=== PATIENT | male | born 1990 | race Caucasian/White ===

== ENCOUNTER 2018-12-12 21:32 | Inpatient (IN) | payer OTHER ==
[2018-12-12] MEDS ORDERED: ACETAMINOPHEN TAB 500 MG TAB PO STA (22:06)
[2018-12-12] MEDS ORDERED: MORPHINE SULFATE 4 MG/ML SYRINGE IVP STA (22:08)
[2018-12-12] MEDS: SODIUM CHLORIDE 0.9% 1,000 ML IV SCH (22:34)
[2018-12-12] MEDS: SODIUM CHLORIDE 0.9% 500 ML 500 ML IV SCH ×2 (22:34→22:35)
[2018-12-12 22:41] LABS: Basophils # (A) 0.2 k/uL (0-0.2); Basophils % (A) 1 %; Eosinophils # (A) 0.5 k/uL (0-0.7); Eosinophils % (A) 3 %; HCT 42.5 % (39.0-53.0); HGB 14.7 gm/dL (13.0-17.5); Lymphocytes # (A) 1.6 k/uL (1.0-4.8); Lymphocytes % (A) 8 %; MCH 29.9 pg (25.0-35.0); MCHC 34.6 g/dL (31.0-37.0); MCV 86.5 fL (80.0-100.0); Monocytes % (A) 5 %; Neutrophils # (A) 15.6 k/uL (1.3-7.7); Neutrophils % (A) 82 %; Platelet Count 217 k/uL (150-450); Poikilocytosis Slight; RBC 4.91 m/uL (4.30-5.90); RDW 13.3 % (11.5-15.5); WBC 19.1 k/uL (3.8-10.6)
[2018-12-12 22:48] LABS: Prothrombin Time 10.9 sec (9.0-12.0)
--- NOTE | 2018-12-12 23:04 | XR ---
EXAM: XR Left Shoulder Complete, 2 or More Views CLINICAL HISTORY: Left shoulder pain. TECHNIQUE: Two or more views of the left shoulder. COMPARISON: None. FINDINGS: Bones/joints: Linear calcific densities are noted just cephalad to the distal clavicle. If there is a history of injury, the possibility of an avulsion fracture related to left shoulder separation should be considered. Regional ribs are unremarkable. Left shoulder joint is intact. No dislocation. Soft tissues: There is extensive soft tissue swelling about the mid and distal aspects of the left clavicle. If there is no history of injury, etiology such as subcutaneous hemangioma cannot be excluded and clinical correlation is advised. IMPRESSION: There is soft tissue swelling about the left clavicle as discussed above. Linear osseous densities are noted just cephalad to the distal clavicle. If there is a history of injury, the possibility of an avulsion injury related to a shoulder separation should be considered. If there is no history of injury or trauma, the possibility of a subcutaneous mass cannot be excluded and magnetic resonance imaging with contrast demonstration is advised for follow-up for further workup.
[2018-12-12 23:05] LABS: ALT 10 U/L (21-72); AST 16 U/L (17-59); African American GFR (CKD) >90 (>60 ml/min/1.73 sqM); Albumin 4.2 g/dL (3.5-5.0); Alkaline Phosphatase 90 U/L (38-126); Anion Gap 11 mmol/L; Blood Urea Nitrogen 9 mg/dL (9-20); Calcium 9.5 mg/dL (8.4-10.2); Carbon Dioxide 27 mmol/L (22-30); Chloride 97 mmol/L (98-107); Glucose 135 mg/dL (74-99); Potassium 3.3 mmol/L (3.5-5.1); Sodium 135 mmol/L (137-145); Total Bilirubin 1.3 mg/dL (0.2-1.3); Total Protein 8.3 g/dL (6.3-8.2)
--- NOTE | 2018-12-12 23:08 | XR ---
EXAM: XR Chest, 2 Views CLINICAL HISTORY: ITS.REASON XR Reason: Fever TECHNIQUE: Frontal and lateral views of the chest. COMPARISON: None. FINDINGS: Lungs: Subcentimeter nodular densities are noted overlapping the lower lung zones near the eighth ribs bilaterally, most likely nipple shadows. No consolidative change to suggest pneumonia. Pleural space: Unremarkable. No pneumothorax. Heart: Unremarkable. No cardiomegaly. Mediastinum: Unremarkable. Bones/joints: An inflammatory or infectious etiology such as osteomyelitis cannot be excluded. Clinical correlation is necessary. If there is a history of injury, the possibility of an is avulsion injury related to subtle shoulder separation should be considered. Soft tissues: There is soft tissue swelling about the mid to distal clavicle relative to the right side. Moreover, a linear ossific densities are noted just cephalad to the distal left clavicle. Alternatively, a subcutaneous mass should also be considered. Clinical correlation about the clavicle is necessary. IMPRESSION: Probable nipple shadows at the lung bases. There is soft tissue swelling about the mid to distal left clavicle relative to the right side. As discussed above, differential etiology includes cellulitis or osteomyelitis, subcutaneous mass, or changes related to a shoulder separation. Given the patient's history of fever, an inflammatory process should be highly considered.
[2018-12-12] MEDS ORDERED: IBUPROFEN 600 MG TAB PO STA (23:11)
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
[2018-12-12] MEDS ORDERED: SODIUM CHLORIDE 0.9% 1,000 ML IV ONE (23:28)
[2018-12-12 23:31] LABS: C Reactive Protein 337.2 mg/L (<10.0)
[2018-12-13] MEDS ORDERED: HYDROmorphone 1 MG/ML 1 ML SYRINGE IVP STA (00:32)
[2018-12-13] MEDS ORDERED: VANCOMYCIN IV PER PHARMACY 1 EACH MISC MISCELLANE PRN (00:32)
[2018-12-13] MEDS ORDERED: VANCOMYCIN 1,250 MG in SODIUM CHLORIDE 0.9% 250 ML IVPB STA (00:35)
[2018-12-13] MEDS ORDERED: VANCOMYCIN 1,500 MG in SODIUM CHLORIDE 0.9% 250 ML IVPB STA (00:37)
[2018-12-13] MEDS ORDERED: ONDANSETRON 4 MG/2 ML VIAL IVP PRN (00:46)
[2018-12-13] MEDS ORDERED: ACETAMINOPHEN TAB 325 MG TAB PO PRN (00:46)
[2018-12-13] MEDS ORDERED: IBUPROFEN 400 MG TAB PO PRN (00:46)
[2018-12-13] MEDS ORDERED: NALOXONE 0.4 MG/ML 1 ML VIAL IV PRN (00:46)
[2018-12-13 01:35] LABS: Appearance,Urine Clear (Clear); Bilirubin,Urine Negative (Negative); Blood,Urine Negative (Negative); Color,Urine Yellow; Glucose,Urine (UA) Negative (Negative); Ketones,Urine Negative (Negative); Leukocyte Esterase,Urine Negative (Negative); Nitrite,Urine Negative (Negative); Protein,Urine Negative (Negative); Specific Gravity,Urine 1.007 (1.001-1.035); Urobilinogen,Urine <2.0 mg/dL (<2.0)
[2018-12-13] MEDS ORDERED: NICOTINE 21MG/24HR PATCH TRANSDERM STA (01:41)
[2018-12-13] MEDS: KETOROLAC 30 MG/ML 1 ML VIAL IVP PRN (02:21)
[2018-12-13] MEDS: PIPERACILLIN-TAZOBACTAM 3.375 GM in SODIUM CHLORIDE 0.9% 100 ML IVPB SCH ×3 (02:24→15:21)
[2018-12-13] MEDS ORDERED: ALPRAZolam 1 MG TAB PO PRN (03:14)
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
[2018-12-13] MEDS ORDERED: POTASSIUM CHLORIDE ER 20 MEQ TAB.ER PO STA (03:27)
[2018-12-13] MEDS: HYDROmorphone 1 MG/ML 1 ML SYRINGE IVP PRN ×3 (03:44→09:26)
--- NOTE | 2018-12-13 07:32 | P.CNOR ---
History of Present Illness - [facility] Consult date: 12/13/18 Consult reason: other ("septic shoulder") History of present illness: The patient is a 28-year-old [id number] male who presents with one- month history of increasing left shoulder pain. He denies a specific injury or inciting event. This is gradually been worsening until last week when it became intense. A few days ago while at work, he attempted to reach forward with his arm and was unable to raise it due to the pain. In the past week, he is also been experiencing some fevers and chills. The pain became so intense that he resorted to injecting heroin. He "usually doesn't mess with heroin." He injected into the right antecubital fossa which is where he says he usually injects. He denies previous history of infections or significant treatment or medical history. He denies prior left shoulder injuries. He does smoke between half a pack a day. Past Medical History Past Medical History: No Reported History History of Any Multi-Drug Resistant Organisms: None Reported Past Surgical History: No Surgical Hx Reported Past Anesthesia/Blood Transfusion Reactions: No Reported Reaction Past Psychological History: No Psychological Hx Reported Smoking Status: Current every day smoker Past Alcohol Use History: Heavy, Occasional Past Drug Use History: Cocaine, Heroin, Marijuana, Methamphetamine - Past Family History Mother Family Medical History: No Reported History Father Family Medical History: Hypertension Medications and Allergies Home Medications Medication Instructions Recorded Confirmed Type Ibuprofen [Motrin Ib] 400 mg PO Q6H PRN 12/12/18 12/12/18 History Allergies Allergy/AdvReac Type Severity Reaction Status Date / Time No Known Allergies Allergy Verified 12/12/18 23:28 Physical Examination Focused musculoskeletal examination of the left upper extremity reveals diffuse edema, calor and mild erythema about the superior aspect of the left shoulder, centered over the AC joint. No discrete focal fluid collection. He demonstrates significant tenderness to palpation over the AC joint. Minimal pain with active and passive internal and external rotation of the shoulder or full active extension of the elbow. Pain with active or passive abduction beyon d 30. No palpable lymphadenopathy in the left upper extremity. Radial pulse is 2+ and the hand is warm and well-perfused. Intact light touch sensation and gross motor function. Results X-rays of the left shoulder were reviewed and interpreted from an orthopedic standpoint. These demonstrate soft tissue swelling cephalad to the distal clavicle. There is a small linear radiodensity above the end of the distal clavicle with approximately 25% superior translation with respect to the acromion. No obvious fractures or dislocations. Glenohumeral joint is concentrically aligned. - Labs Labs: Abnormal Lab Results - Last 24 Hours (Table) 12/12/18 12/12/18 Range/Units 22:29 22:29 WBC 19.1 H (3.8-10.6) k/uL Neutrophils # 15.6 H (1.3-7.7) k/uL Sodium 135 L (137-145) mmol/L Potassium 3.3 L (3.5-5.1) mmol/L Chloride 97 L (98-107) mmol/L Glucose 135 H (74-99) mg/dL AST 16 L (17-59) U/L ALT 10 L (21-72) U/L C-Reactive Protein 337.2 H (<10.0) mg/L Total Protein 8.3 H (6.3-8.2) g/dL H & H 12/12/18 Range/Units 22:29 Hgb 14.7 (13.0-17.5) gm/dL Hct 42.5 (39.0-53.0) % Coagulation 12/12/18 Range/Units 22:29 INR 1.0 (<1.2) Result Diagrams: 12/12/18 22:29 12/12/18 22:29 Assessment and Plan Assessment: 1. Left shoulder cellulitis -- possible septic arthritis of the left acromioclavicular (AC) joint 2. Polysubstance abuse including nicotine addiction and recent IVDA with heroin Plan: I discussed the clinical and radiographic findings in detail with the patient. His presentation and exam is concerning for possible septic arthritis of his AC joint. I recommended obtaining an MRI with contrast to further evaluate for any intra-articular effusion or subcutaneous abscess. The patient adamantly states that he will not undergo any type of surgical procedure for at least 2 days to give the antibiotics chance to work. He is "deathly afraid" of being in the hospital and having surgery. Based on the MRI results, he may consider an ultrasound-guided aspiration by interventional radiology. Recommended continuing IV antibiotics and PRN pain management. I did discuss the negative effects of cigarette smoking, particularly as it relates to infection risk and delayed healing. We will follow the patient closely and make further recommendations after the MRI.
[2018-12-13] MEDS: VANCOMYCIN 1,250 MG in SODIUM CHLORIDE 0.9% 250 ML IVPB SCH ×2 (09:16→15:53)
[2018-12-13] MEDS: HEPARIN SODIUM,PORCINE 5,000 UNIT/ML 1 ML VIAL SQ SCH ×3 (09:22→21:21)
[2018-12-13] MEDS: NICOTINE 21MG/24HR PATCH TRANSDERM SCH (09:27)
[2018-12-13] MEDS: SODIUM CHLORIDE 0.9% 1,000 ML IV SCH ×2 (09:27→15:53)
--- NOTE | 2018-12-13 11:11 | P.PN ---
Progress Note - Text Progress Note Date: 12/13/18 Patient was seen. Complaining of 10 out of 10 pain in his left shoulder. States that he has a very high tolerance to opiates. States that 1 mg Dilaudid not working at all. We will increase his pain regimen. MRI is pending. Continue IV antibiotics. Please refer to H&P for full documentation.
[2018-12-13] MEDS: HYDROmorphone 2 MG/ML 1 ML SYRINGE IVP PRN ×4 (11:40→22:21)
[2018-12-13] MEDS: METHADONE 5 MG TAB PO SCH (15:49)
--- NOTE | 2018-12-13 17:18 | MR ---
EXAMINATION TYPE: MR shoulder LT wo/w con DATE OF EXAM: 12/13/2018 COMPARISON: Radiographs 12/12/2018 HISTORY: 28-year-old male pain, Osteomyelitis lt shoulder Technique: Multiplanar, multisequence images of the left shoulder were obtained before and after admi nistration of 7.5 mL intravenous Gadavist gadolinium contrast. FINDINGS: There is irregular, peripherally enhancing fluid collection extending throughout the left trapezius m usculature superior and medial to the AC joint. This collection measures 5.5 cm wide by 2.0 cm cranio caudal by 3.8 cm AP. Fluid is contiguous with the acromioclavicular joint. There is T1-weighted bone marrow placement on either side of the AC joint. A sliver of abnormal, peripherally enhancing fluid measuring 2.1 x 0.5 cm extends into the lateral pr oximal deltoid musculature. There is surrounding intense edema and enhancement of the anterolateral d eltoid musculature here. The underlying rotator cuff is intact. No rotator cuff muscle atrophy or abnormal enhancement of the musculature. Glenohumeral joint is intact without significant joint effusion. The long head biceps tendon appears intact. No os acromiale or Hill-Sachs deformity. Red marrow compatible with patient's young age. IMPRESSION: 1. Findings suggest septic arthritis of the AC joint with contiguous osteomyelitis. Additional contig uous irregular abscess extending superiorly and medially from the AC joint involving the trapezius mu sculature (5.5 x 2.0 x 3.8 cm) and a small finger of infective fluid extending into the anterolateral deltoid musculature (2.1 x 0.5 cm) with associated deltoid myositis. 2. No rotator cuff tear or effusion within the glenohumeral joint.
[2018-12-14] MEDS: VANCOMYCIN 1,250 MG in SODIUM CHLORIDE 0.9% 250 ML IVPB SCH ×4 (00:52→23:04)
[2018-12-14] MEDS: PIPERACILLIN-TAZOBACTAM 3.375 GM in SODIUM CHLORIDE 0.9% 100 ML IVPB SCH ×3 (00:52→18:01)
[2018-12-14] MEDS: HYDROmorphone 2 MG/ML 1 ML SYRINGE IVP PRN ×8 (01:22→23:52)
[2018-12-14] MEDS ORDERED: HYDROmorphone 1 MG/ML 1 ML SYRINGE IVP STA (02:49)
[2018-12-14] MEDS: SODIUM CHLORIDE 0.9% 1,000 ML IV SCH ×3 (03:24→17:51)
[2018-12-14 07:38] LABS: African American GFR (CKD) >90 (>60 ml/min/1.73 sqM)
[2018-12-14] MEDS ORDERED: VANCOMYCIN TROUGH DUE 1 EACH MISC MISCELLANE ONE (08:00)
[2018-12-14] MEDS: NICOTINE 21MG/24HR PATCH TRANSDERM SCH (10:19)
--- NOTE | 2018-12-14 10:40 | P.PN ---
Subjective Progress Note Date: 12/14/18 Principal diagnosis: Left shoulder abscess, osteomyelitis Patient was seen and examined. No acute events overnight. Patient reports left shoulder pain and immobility, 100 out of 10 in severity. Seen by orthopedic surgery, recommends surgery. Patient adamant about receiving surgery, wants a second opinion. States he will think about it. He denies any chest pain, shortness or palpitations. No nausea or vomiting. No fever or chills. Objective - Vital Signs Vital signs: Vital Signs Temp 98.7 F 12/14/18 02:48 Pulse 105 H 12/14/18 02:48 Resp 16 12/14/18 02:48 BP 126/78 12/14/18 02:48 Pulse Ox 100 12/14/18 02:48 Intake & Output 12/13/18 12/14/18 12/14/18 18:59 06:59 18:59 Intake Total 250 240 Balance 250 240 Intake: Intake, IV Titration 250 Amount Sodium Chloride 0.9% 1, 250 000 ml @ 126 mls/hr IV . Q7H57M [facility] Rx#:[id number] Oral 240 Other: Voiding Method Toilet # Voids 2 2 - Exam General: [non toxic], [no distress], [appears at stated age] Derm: [warm], [dry] Head: [atraumatic], [normocephalic], [symmetric] Eyes: [EOMI], [no lid lag], [anicteric sclera] Mouth: [no lip lesion], [mucus membranes moist] Cardiovascular: [S1S2 reg], [no murmur], [positive posterior tibial pulse bilateral] Lungs: [CTA bilateral], [no rhonchi, no rales] , [no accessory muscle use] Abdominal: [soft], [ nontender to palpation], [no guarding], [no appreciable o rganomegaly] Ext: [no gross muscle atrophy], [no edema], [no contractures], [left shoulder erythema anterior superior aspect, outlined, decreased range of motion of the left shoulder] Neuro: [no focal neuro deficits] Psych: [Alert], [oriented], [appropriate affect] - Labs CBC & Chem 7: 12/12/18 22:29 12/14/18 07:04 Labs: Microbiology - Last 24 Hours (Table) 12/12/18 22:29 Blood Culture - Preliminary Blood No Growth after 24 hours 12/13/18 01:22 Urine Culture - Preliminary Urine,Voided Assessment and Plan Assessment: Septic arthritis of the left shoulder, history of IV drug use Hypokalemia Polysubstance abuse Leukocytosis of 19.1. CRP 337.2. Shoulder x-ray shows soft tissue swelling. MRI of the left shoulder confirms osteomyelitis with abscess formation. Lactic acid within normal limits. Plans: Continue vancomycin and Zosyn. Pain manageme nt with Dilaudid 2 mg IV every 3 hours as needed. Tylenol as needed for fever. Toradol as needed for pain. Follow orthopedic recommendations. Follow blood culture, urine culture, GC culture. Potassium 3.3 yesterday replaced orally. Plans: Repeat BMP today. Plans: Start methadone 20 mg by mouth today. [Patient admitted for septic arthritis of the left shoulder with abscess formation. Surgery recommended by orthopedic surgery. Patient is adamant about not wanting any procedures. Continue IV antibiotics. Patient is pending clinical improvement.]
--- NOTE | 2018-12-14 10:49 | P.PN ---
<Dianna Mcrae - Last Filed: 12/14/18 10:40> Subjective Progress Note Date: 12/14/18 Principal diagnosis: Acromioclavicular joint sepsis left shoulder. This is a 28-year-old male who we have been following regarding septic arthritis to the AC joint of the left shoulder. MRI done late yesterday confirms sepsis to the acromioclavicular joint with extension of the abscess into the trapezius and deltoid muscles, as well as osteomyelitis. The patient currently is afebrile. He continues on IV vancomycin. Objective - Vital Signs Vital signs: Vital Signs Temp 97.9 F 12/14/18 07:00 Pulse 90 12/14/18 07:00 Resp 12 12/14/18 07:00 BP 115/73 12/14/18 07:00 Pulse Ox 100 12/14/18 07:00 Intake & Output 12/13/18 12/14/18 12/14/18 18:59 06:59 18:59 Intake Total 250 240 Balance 250 240 Intake: Intake, IV Titration 250 Amount Sodium Chloride 0.9% 1, 250 000 ml @ 126 mls/hr IV . Q7H57M ON LICENSE OF [facility] Rx#:[id number] Oral 240 Other: Voiding Method Toilet # Voids 2 2 - Exam This is a 28-year-old male in no acute distress. He is alert and oriented 3. Exam of left shoulder reveals mild soft tissue swelling. Over the left shoulder. He is able to move the elbow wrist and fingers slightly. Neurovascular status the upper extremity is intact. - Labs CBC & Chem 7: 12/12/18 22:29 12/14/18 07:04 Labs: Microbiology - Last 24 Hours (Table) 12/12/18 22:29 Blood Culture - Preliminary Blood No Growth after 24 hours 12/13/18 01:22 Urine Culture - Preliminary Urine,Voided Assessment and Plan (1) IVDU (intravenous drug user) Current Visit: Yes Status: Acute Code(s): F19.90 - OTHER PSYCHOACTIVE SUBSTANCE USE, UNSPECIFIED, UNCOMPLICATED SNOMED Code(s): 690283048 (2) Osteomyelitis Current Visit: Yes Status: Acute Code(s): M86.9 - OSTEOMYELITIS, UNSPECIFIED SNOMED Code(s): 27194584 (3) Pain in left acromioclavicular joint Current Visit: Yes Status: Acute Code(s): M25.512 - PAIN IN LEFT SHOULDER SNOMED Code(s): 213598126 (4) Septic arthritis Current Visit: Yes Status: Acute Code(s): M00.9 - PYOGENIC ARTHRITIS, UNSPECIFIED SNOMED Code(s): 721169568 Plan: The clinical and MRI findings are discussed with the patient. I have reviewed the case with Dr. Barnard. It is recommended that he undergo irrigation and debridement of the acromioclavicular joint and shoulder today. The patient is currently refusing to proceed with the procedure at this time. I had a lengthy discussion with the patient regarding the potential outcome if he does not have the joint washed out today. He is at risk for chronic osteomyelitis and spreading of the infection down the arm. It is discussed that he is at risk for losing the arm entirely if he is not consent to aggressive treatment. The p atient states that he will think about it and let us know. In the meantime I have made him nothing by mouth and I have t boarded the case for this afternoon. <Mp Barnard - Last Filed: 12/14/18 12:56> Objective - Vital Signs Vital signs: Vital Signs Temp 97.9 F 12/14/18 07:00 Pulse 90 12/14/18 08:00 Resp 12 12/14/18 08:00 BP 115/73 12/14/18 07:00 Pulse Ox 100 12/14/18 07:00 Intake & Output 12/13/18 12/14/18 12/14/18 18:59 06:59 18:59 Intake Total 250 240 Balance 250 240 Intake: Intake, IV Titration 250 Amount Sodium Chloride 0.9% 1, 250 000 ml @ 126 mls/hr IV . Q7H57M ON LICENSE OF [facility] Rx#:[id number] Oral 240 Other: Voiding Method Toilet Toilet # Voids 2 2 - Labs CBC & Chem 7: 12/14/18 07:04 12/14/18 07:04 Labs: Abnormal Lab Results - Last 24 Hours (Table) 12/14/18 12/14/18 Range/Units 07:04 07:04 WBC 11.5 H (3.8-10.6) k/uL RBC 4.18 L (4.30-5.90) m/uL Hgb 12.4 L (13.0-17.5) gm/dL Hct 37.1 L (39.0-53.0) % Neutrophils # 8.4 H (1.3-7.7) k/uL BUN 5 L (9-20) mg/dL Glucose 118 H (74-99) mg/dL Microbiology - Last 24 Hours (Table) 12/12/18 22:29 Blood Culture - Preliminary Blood No Growth after 24 hours 12/13/18 01:22 Urine Culture - Preliminary Urine,Voided Assessment and Plan Plan: Discussed with ZULEMA Mcrae and agree with above (amendments/corrections noted below). The patient was subsequently seen and examined by me as well. S: The patient reports significant persistent pain, requiring IV Dilaudid every 2 hours. He does not feel symptoms have improved since starting the IV antibiotics. O: Persistent focal edema and subcutaneous fluctuance superiorly over the AC joint & distal clavicle. Mild erythema still present and not substantially progressed beyond the previously demarcated borders. Prominent tenderness to palpation superiorly but minimal over the pectoralis or distal deltoid. Imaging MRI of the left shoulder was reviewed and interpreted from an orthopedic standpoint. It demonstrates an effusion in the acromioclavicular joint with direct extension superiorly into a large abscess in the subcutaneous tissue. Fluid signal noted in the distal clavicle and lateral acromion consistent with osteomyelitis. No evidence of bony erosion or sequestrum. Mild fluid signal in the proximal deltoid consistent with myositis. No glenohumeral joint effusion. A: Septic arthritis of the left acromioclavicular joint with abscess and osteomyelitis Recent IVDA and history of polysubstance abuse Nicotine addiction P: I discussed the clinical and MRI findings with Mr. Corcoran. I explained the rationale behind surgical intervention. Risks associated with nonsurgical treatment were discussed, including persistent/chronic infection, secondary arthritis, need for amputation, progression to fulminant systemic sepsis and even . We discussed the surgical plan of open incision and drainage as well as the expected postoperative course. I explained that further surgical debridement may be required. Risks and benefits of surgery were reviewed. The patient still is unhappy with the idea of surgery: "I just hate coming to the hospital... haven't been here in 15 years." He expressed understanding for the need for surgery and states "I can't live with the pain like this" and wishes to proceed with surgical debridement. Maintain NPO. Continue PRN pain management. Mp Barnard D.O. [facility]
[2018-12-14 11:11] LABS: Anion Gap 11 mmol/L; Blood Urea Nitrogen 5 mg/dL (9-20); Carbon Dioxide 25 mmol/L (22-30); Chloride 104 mmol/L (98-107); Glucose 118 mg/dL (74-99); Potassium 3.5 mmol/L (3.5-5.1); Sodium 140 mmol/L (137-145)
[2018-12-14 11:16] LABS: Basophils # (A) 0.1 k/uL (0-0.2); Basophils % (A) 1 %; Eosinophils # (A) 0.4 k/uL (0-0.7); Eosinophils % (A) 4 %; HCT 37.1 % (39.0-53.0); HGB 12.4 gm/dL (13.0-17.5); Lymphocytes # (A) 1.7 k/uL (1.0-4.8); Lymphocytes % (A) 14 %; MCH 29.6 pg (25.0-35.0); MCHC 33.4 g/dL (31.0-37.0); MCV 88.7 fL (80.0-100.0); Mean Platelet Volume 9.2; Monocytes # (A) 0.8 k/uL (0-1.0); Monocytes % (A) 7 %; Neutrophils # (A) 8.4 k/uL (1.3-7.7); Neutrophils % (A) 73 %; Platelet Count 185 k/uL (150-450); Poikilocytosis Slight; RBC 4.18 m/uL (4.30-5.90); RDW 14.2 % (11.5-15.5); WBC 11.5 k/uL (3.8-10.6)
[2018-12-14] MEDS: METHADONE 5 MG TAB PO SCH ×2 (11:48→23:03)
[2018-12-14] MEDS: HEPARIN SODIUM,PORCINE 5,000 UNIT/ML 1 ML VIAL SQ SCH ×3 (11:48→23:04)
[2018-12-14] MEDS ORDERED: HYDROmorphone 0.5 MG/0.5 ML SYRINGE IVP PRN (12:24)
[2018-12-14] MEDS: LACTATED RINGERS 1,000 ML IV SCH (12:32)
[2018-12-14] MEDS: KETOROLAC 30 MG/ML 1 ML VIAL IVP PRN (13:43)
[2018-12-14] MEDS ORDERED: IV FLUID CONTINUATION 1,000 ML IV ONE (14:07)
[2018-12-14] MEDS ORDERED: DEXAMETHASONE SOD PHOS (MDV) 100 MG/10 ML VIAL ONE (14:15)
[2018-12-14] MEDS ORDERED: fentaNYL (PF) 50 MCG/ML 2 ML AMP ONE (14:15)
[2018-12-14] MEDS ORDERED: LIDOCAINE 1% INJ 10MG/ML (20 ML MDV) ONE (14:15)
[2018-12-14] MEDS ORDERED: PHENYLEPHRINE-0.9% NACL SYG 1 MG/10 ML SYRINGE ONE (14:15)
[2018-12-14] MEDS ORDERED: ONDANSETRON 4 MG/2 ML VIAL ONE (14:15)
[2018-12-14] MEDS ORDERED: MIDAZOLAM 2 MG/2 ML VIAL ONE (14:15)
[2018-12-14] MEDS ORDERED: PROPOFOL 10 MG/ML 20 ML VIAL IV ONE (14:15)
[2018-12-14] MEDS ORDERED: KETAMINE 10 MG/ML 20 ML VIAL ONE (14:15)
[2018-12-14] MEDS ORDERED: SUCCINYLCHOLINE CHLORIDE 100 MG/5 ML SYR IV ONE (14:15)
[2018-12-14] MEDS ORDERED: fentaNYL (PF) 50 MCG/ML 2 ML AMP IVP ONE (14:16)
[2018-12-14] MEDS ORDERED: MIDAZOLAM (PF) 2 MG/2 ML VIAL IVP ONE (14:16)
[2018-12-14] MEDS ORDERED: LACTATED RINGERS 1,000 ML IV ONE (15:20)
[2018-12-14] MEDS ORDERED: ROPIVACAINE 5 MG/ML 30 ML VIAL MISCELLANE ONE (16:33)
[2018-12-14] MEDS ORDERED: LIDOCAINE 2% (PF) 20 MG/ML 5 ML VIAL SQ ONE (16:34)
--- NOTE | 2018-12-14 18:08 | P.OP ---
Date of Procedure: 12/14/18 Preoperative Diagnosis: Left shoulder abscess with left acromioclavicular joint septic arthritis and osteomyelitis Postoperative Diagnosis: 1. Left shoulder abscess with left acromioclavicular joint septic arthritis and osteomyelitis 2. 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 Incision and drainage of left shoulder abscess with irrigation and debridement of left acromioclavicular joint septic arthritis 2. Resection of necrotic muscle of the deltoid and trapezius 3. Left distal clavicle excision Anesthesia: DANYELL, local Surgeon: Mp Barnard Estimated Blood Loss (ml): 100 Pathology: other (Fluid cultures, AC joint synovial tissue and distal clavicle bone) Condition: stable Disposition: PACU Indications for Procedure: The patient is a 28-year-old male who presented to the emergency department with a one-month history of worsening left shoulder pain. He was diagnosed with septic arthritis of his left AC joint. Preoperative MRI showed a joint effusion and large surrounding fluid collection. Surgical debridement was recommended. We discussed the possible need for distal clavicle excision, to be determined by intraoperative findings. Risks and benefits were reviewed including (but not limited to) the risks of bleeding, persistent or recurrent infection, wound healing problems, stiffness and possible need for additional surgery. The patient expressed understanding, willingness to accept these risks and wished to proceed with surgery. Consent forms were signed. The surgical site was confirmed and marked preoperatively. Operative Findings: Moderate thin garcía fluid beneath the trapezius and subdeltoid space. Necrosis of portions of the adjacent trapezius and deltoid muscles. Osteomyelitis of the distal clavicle Description of Procedure: The patient was brought to the operating suite by the anesthesia team and general anesthesia was administered uneventfully. He was transferred to the operating table and placed in the beachchair position. All bony prominences were well-padded. The left upper extremity was then prepped and draped in standard, sterile fashion. A time-out was performed, confirming patient identifiers, the operative side, site and the procedure to be performed: all team members expressed agreement. A vertical saber incision was marked over the superior aspect of the acromioclavicular (AC) joint. The skin was sharply incised and full-thickness skin flaps were elevated. The trapezius and deltoid muscles near the AC joint were dusky and edematous. The deltotrapezial fascia was incised and elevated off the lateral acromion. Blunt dissection revealed abundant thin garcía, purulent-appearing fluid beneath and within the anterior trapezius muscle as well as the origins of the anterior and medial heads of the deltoid. A swab culture of this fluid was obtained. Finger dissection easily pushed through the necrotic muscle which appeared dusky and was noncontractile when lightly touched with electrocautery. The necrotic muscle was resected back to healthy contractile tissue which showed good bleeding. A moderate amount of the anterolateral trapezius muscle needed to be resected. The AC joint was identified. There was thickened, hypertrophic fibrous tissue circumferentially around the joint. More purulent fluid was encountered within the joint. The joint was explored. Proliferative synovial tissue was sharply resected and sent for culture. The bone of the distal clavicle was soft, easily giving way when probed, and the underlying cancellous bone appeared infected. The subchondral bone of the acromion was firm and did not appear grossly infected. The decision was made to proceed with distal clavicle excision. The articular disc was resected. A reciprocating saw was used to resect approximately 7-8 mm of the distal clavicle. The sharp edges of the remaining bone were contoured and smoothed. Anterior-posterior and caudad-cephalad manual translation of the distal clavicle revealed no gross instability after resection. The wound was copiously irrigated with 9 L of normal saline using cystoscopy tubing and gravity inflow. The bone, muscle and surrounding soft tissues were mechanically debrided with curettes and rongeurs. Once adequate debridement of the infected and nonviable tissue was achieved, the deltotrapezial fascia was repaired with interrupted lseump-ky-elate #1 PDS sutures. A 15 German round fenestrated DHARA drain was inserted beneath the fascia and passed out the lateral skin and sutured in place with 2-0 nylon. The subcutaneous tissues were loosely reapproximated with interrupted 2-0 PDS sutures. The incision was closed with interrupted 3-0 Prolene sutures. Lidocaine and ropivacaine (both without epinephrine) were injected into the surrounding subcutaneous tissues for postop erative pain control. Sterile dressings of Adaptic, 4 x 4's and ABDs were applied. All sponge, needle and instrument counts were correct at the end of the case. The patient tolerated the procedure well. He was extubated uneventfully and was taken to recovery in stable condition. The patient will be returned to the floor for continued monitoring and IV antibiotics, to be guided by intraoperative cultures.
[2018-12-14] MEDS: ALPRAZolam 0.5 MG TAB PO PRN (20:28)
[2018-12-14] MEDS: NICOTINE POLACRILEX 2 MG GUM BUCCAL PRN (22:28)
--- NOTE | 2018-12-14 22:28 | P.PN ---
Progress Note - Text Progress Note Date: 12/14/18 patient has been threatening to leave against medical advice multiple times now since yesterday. everytime i would meet with him to address his concerns. which ranged from staff being judgmental , to i need more pain medications, i need to use street drugs because it works better than your medications. earlier today , he claimed that a visitor in his room was his cousine. however the RN found that person intoxicated with elastic shoe lace in her possession, and was asked to leave. patient was asked to go through his belongings to make sure there were no street drugs, and found to have needles among other tools in his bag, including a jig box operator. He was told that he cant have that in his possession and should be kept with security. security was at bed side and he was the person who went with the patient over the patients belongings. patient was not happy about this, and thought that we were judging him and treating him unfairly despite staff (EDI florez, the managed security sales consultant, and me) telling him that all we care about is his safety. Of note, the bag was brought by the visitor "cousin" , and it was not in the room from earlier. patient kept threatening to leave AMA, to use street drugs, to smoke, and because he does not like how he is treated here. everyone Kept reassuring him that all we care about is his safety and we have been courteous to the patient. He was offered more pain meds when he asked , and nicotine replacement therapy in the form of Patch , and then nicotine gum when he thought it was not enough. It is not clear to us why patient gets agitated and keeps on insisting to leaving. we (RN, and myself) explained to the patient the risks of leaving AMA, including but not limited to , complications secondary to his recent surgery if not attended properly, progression of his osteomyelitis, and possible . patient verbalized understanding and clearly claimed that he is not suicidal or homicidal. eventually patient calmed down, and became more cooperative with staff, let security go over his belongings and ceasing any tools that might put patient life or the staff at danger. patient at this time agreeing to stay in the hospital. I would not be surprised if he changes his mind later though.
[2018-12-15] MEDS: PIPERACILLIN-TAZOBACTAM 3.375 GM in SODIUM CHLORIDE 0.9% 100 ML IVPB SCH ×2 (00:03→08:22)
[2018-12-15] MEDS: VANCOMYCIN 1,250 MG in SODIUM CHLORIDE 0.9% 250 ML IVPB SCH ×5 (03:30→22:00)
[2018-12-15] MEDS: HYDROmorphone 2 MG/ML 1 ML SYRINGE IVP PRN ×5 (03:31→11:31)
[2018-12-15] MEDS: NICOTINE POLACRILEX 2 MG GUM BUCCAL PRN (03:38)
[2018-12-15] MEDS: ALPRAZolam 0.5 MG TAB PO PRN (06:32)
[2018-12-15] MEDS: NICOTINE 21MG/24HR PATCH TRANSDERM SCH (08:18)
[2018-12-15] MEDS: METHADONE 5 MG TAB PO SCH ×2 (08:18→20:53)
[2018-12-15] MEDS: HEPARIN SODIUM,PORCINE 5,000 UNIT/ML 1 ML VIAL SQ SCH ×3 (08:19→21:58)
[2018-12-15] MEDS: SODIUM CHLORIDE 0.9% 1,000 ML IV SCH ×3 (08:23→15:29)
[2018-12-15] MEDS ORDERED: VANCOMYCIN TROUGH DUE 1 EACH MISC MISCELLANE ONE (09:00)
[2018-12-15] MEDS: LACTATED RINGERS 1,000 ML IV SCH (10:28)
--- NOTE | 2018-12-15 11:00 | P.PN ---
<Dianna Mcrae - Last Filed: 12/15/18 10:47> Subjective Progress Note Date: 12/15/18 Principal diagnosis: Acromioclavicular joint sepsis left shoulder. This is a 28-year-old male who we have been following regarding septic arthritis to the AC joint of the left shoulder. He is status post incision and drainage of the left shoulder. The patient apparently had a visitor in his room last evening that reportedly brought him a bag which had needles and a box spring maker. Security was called and his this is her was removed from the hospital. The patient today is adamant that he didn't take any other medications last evening. According to nursing staff his vitals did notably change after his friend was in the room. Estimated later the room the patient asked if he could be discharged just for the day and be readmitted tomorrow. When I told him that I could not do that, the patient became very agitated and stated that everyone here is being "rude to him". Objective - Vital Signs Vital signs: Vital Signs Temp 98.0 F 12/15/18 08:14 Pulse 80 12/15/18 08:14 Resp 17 12/15/18 08:14 BP 118/70 12/15/18 08:14 Pulse Ox 93 L 12/15/18 08:14 Intake & Output 12/14/18 12/15/18 12/15/18 18:59 06:59 18:59 Intake Total 2740 100 400 Output Total 100 70 Balance 2640 30 400 Intake: IV 1600 Intake, IV Titration 900 Amount Sodium Chloride 0.9% 1, 900 000 ml @ 126 mls/hr IV . Q7H57M [facility] Rx#:[id number] Oral 240 100 400 Output: Drainage 70 Left Shoulder 70 Estimated Blood Loss 100 Other: Voiding Method Toilet Toilet # Voids 3 1 - Exam This is a 28-year-old male in no acute distress. He is alert and oriented 3. Exam the left shoulder reveals that his dressing is clean, dry and intact. There is a drain still in place. He has near full elbow range of motion and full finger motion. Neurovascular status the upper extremity is intact. - Labs CBC & Chem 7: 12/14/18 07:04 12/14/18 07:04 Labs: Abnormal Lab Results - Last 24 Hours (Table) 12/14/18 12/14/18 Range/Units 07:04 07:04 WBC 11.5 H (3.8-10.6) k/uL RBC 4.18 L (4.30-5.90) m/uL Hgb 12.4 L (13.0-17.5) gm/dL Hct 37.1 L (39.0-53.0) % Neutrophils # 8.4 H (1.3-7.7) k/uL BUN 5 L (9-20) mg/dL Glucose 118 H (74-99) mg/dL Microbiology - Last 24 Hours (Table) 12/14/18 16:12 Gram Stain - Preliminary Shoulder - Left Tissue Culture - Preliminary 12/12/18 22:29 Blood Culture - Preliminary Blood No Growth after 48 hours 12/14/18 16:12 Acid Fast Bacilli Culture - Preliminary Shoulder - Left 12/14/18 16:12 Acid Fast Bacilli Culture - Preliminary Shoulder - Left 12/14/18 16:12 Anaerobic Culture - Preliminary Shoulder - Left 12/14/18 16:12 Fungal Culture - Preliminary Shoulder - Left 12/14/18 16:12 Fungal Culture - Preliminary Shoulder - Left 12/14/18 16:12 Acid Fast Bacilli Culture - Preliminary Shoulder - Left 12/14/18 16:12 Anaerobic Culture - Preliminary Shoulder - Left 12/14/18 16:12 Anaerobic Culture - Preliminary Shoulder - Left 12/14/18 16:12 Fungal Culture - Preliminary Shoulder - Left 12/14/18 16:12 Tissue Culture - Preliminary Shoulder - Left 12/14/18 16:12 Tissue Culture - Preliminary Shoulder - Left Assessment and Plan (1) IVDU (intravenous drug user) Current Visit: Yes Status: Acute Code(s): F19.90 - OTHER PSYCHOACTIVE SUBSTANCE USE, UNSPECIFIED, UNCOMPLICATED SNOMED Code(s): 197338423 (2) Osteomyelitis Current Visit: Yes Status: Acute Code(s): M86.9 - OSTEOMYELITIS, UNSPECIFIED SNOMED Code(s): 45930442 (3) Pain in left acromioclavicular joint Current Visit: Yes Status: Acute Code(s): M25.512 - PAIN IN LEFT SHOULDER SNOMED Code(s): 853044091 (4) Septic arthritis Current Visit: Yes Status: Acute Code(s): M00.9 - PYOGENIC ARTHRITIS, UNSPECIFIED SNOMED Code(s): 709913700 Plan: The clinical findings have been discussed with the patient. We will leave the dressing intact today. The nurse and I had a long discussion with the patient regarding his behavior. At one point he stated he was leaving and got up to put his clothes on. With the nurse turned his IV off he then reacted stating that he was not going to leave. He continues to threaten to leave AMA but has yet to do so. There is a psychiatry consult pending. We'll continue to follow. <Mp Barnard - Last Filed: 12/15/18 17:30> Objective - Vital Signs Vital signs: Vital Signs Temp 98.0 F 12/15/18 14:51 Pulse 84 12/15/18 14:51 Resp 16 12/15/18 14:51 BP 110/68 12/15/18 14:51 Pulse Ox 97 12/15/18 14:51 Intake & Output 12/14/18 12/15/18 12/15/18 18:59 06:59 18:59 Intake Total 2740 100 1440 Output Total 100 70 Balance 2640 30 1440 Intake: IV 1600 Intake, IV Titration 900 Amount Sodium Chloride 0.9% 1, 900 000 ml @ 126 mls/hr IV . Q7H57M [facility] Rx#:[id number] Oral [id number] [id number] Output: Drainage 70 Left Shoulder 70 Estimated Blood Loss 100 Other: Voiding Method Toilet Toilet # Voids 3 1 - Labs CBC & Chem 7: 12/14/18 07:04 12/14/18 07:04 Labs: Microbiology - Last 24 Hours (Table) 12/14/18 16:12 Gram Stain - Preliminary Shoulder - Left Tissue Culture - Preliminary 12/12/18 22:29 Blood Culture - Preliminary Blood No Growth after 48 hours 12/14/18 16:12 Acid Fast Bacilli Culture - Preliminary Shoulder - Left 12/14/18 16:12 Acid Fast Bacilli Culture - Preliminary Shoulder - Left 12/14/18 16:12 Anaerobic Culture - Preliminary Shoulder - Left 12/14/18 16:12 Fungal Culture - Preliminary Shoulder - Left 12/14/18 16:12 Fungal Culture - Preliminary Shoulder - Left 12/14/18 16:12 Acid Fast Bacilli Culture - Preliminary Shoulder - Left 12/14/18 16:12 Anaerobic Culture - Preliminary Shoulder - Left 12/14/18 16:12 Anaerobic Culture - Preliminary Shoulder - Left 12/14/18 16:12 Fungal Culture - Preliminary Shoulder - Left 12/14/18 16:12 Tissue Culture - Preliminary Shoulder - Left 12/14/18 16:12 Tissue Culture - Preliminary Shoulder - Left Assessment and Plan Plan: Reviewed and agree with above (amendments/corrections noted below). The patient was subsequently seen and examined by me as well. S: Events of the last 24 hours reviewed. Discussed with RN. The patient reports that his pain is fairly well controlled; however, he is still requiring regular IV narcotics. O: Dressings disheveled but clean and in place. Minimal pain with active elbow motion and passive internal and external rotation of the shoulder. He is only able to abduct about 20 tolerates passive circumduction to 60. Drain has good seal with serosanguinous drainage (mostly serous and no purulence). Drain output (since surgery): 70cc A: Postop day #1 status post I&D of left AC joint septic arthritis with distal clavicle excision Osteomyelitis distal clavicle Polysubstance abuse P: Clinically, the patient appears to be doing well with regard to the shoulder. I advised him to work on gentle pendulums and circumduction but to avoid active elevation or reaching across the body. Leave the drain and dressings in place for now. He is refusing subcu heparin injections. I encouraged him to ambulate to decrease his risk of DVT. Intraoperative cultures are still pending. DC planning -- the patient will require extended antibiotics therapy. May consider consult to Anesthesia for pain management recommendations in order to transition off IV narcotics. Will continue to follow Mp Barnard D.O. [facility]
--- NOTE | 2018-12-15 12:21 | P.PN ---
Subjective Progress Note Date: 12/15/18 Principal diagnosis: Left shoulder abscess, osteomyelitis Patient was seen and examined. No acute events overnight. Underwent I&D of the left shoulder yesterday with DHAAR drain placement. Overnight, cousin brought over a bag to continued close and box inspector. Patient placed with no visitation rights, no illicit drugs found. Patient states that he feels frustrated and is considering signing out AMA. He denies any chest pain, shortness breath or palpitations. No nausea or vomiting. No fever or chills. Pain is slightly improved since I&D procedure yesterday. Objective - Vital Signs Vital signs: Vital Signs Temp 98.0 F 12/15/18 08:14 Pulse 80 12/15/18 08:14 Resp 17 12/15/18 08:14 BP 118/70 12/15/18 08:14 Pulse Ox 93 L 12/15/18 08:14 Intake & Output 12/14/18 12/15/18 12/15/18 18:59 06:59 18:59 Intake Total 2740 100 400 Output Total 100 70 Balance 2640 30 400 Intake: IV 1600 Intake, IV Titration 900 Amount Sodium Chloride 0.9% 1, 900 000 ml @ 126 mls/hr IV . Q7H57M [facility] Rx#:[id number] Oral 240 100 400 Output: Drainage 70 Left Shoulder 70 Estimated Blood Loss 100 Other: Voiding Method Toilet Toilet # Voids 3 1 - Exam General: [non toxic], [no distress], [appears at stated age] Derm: [warm], [dry] Head: [atraumatic], [normocephalic], [symmetric] Eyes: [EOMI], [no lid lag], [anicteric sclera] Mouth: [no lip lesion], [mucus membranes moist] Cardiovascular: [S1S2 reg], [no murmur], [positive posterior tibial pulse bilateral] Lungs: [CTA bilateral], [no rhonchi, no rales] , [no accessory muscle use] Abdominal: [soft], [ nontender to palpation], [no guarding], [no appreciable organomegaly] Ext: [no gross muscle atrophy], [no edema], [no contractures], [left shoulder dressings placed clean dry and intact, DHARA drain draining serosanguineous fluid] Neuro: [no focal neuro deficits] Psych: [Alert], [oriented], [appropriate affect] - Labs CBC & Chem 7: 12/14/18 07:04 12/14/18 07:04 Labs: Microbiology - Last 24 Hours (Table) 12/14/18 16:12 Gram Stain - Preliminary Shoulder - Left Tissue Culture - Preliminary 12/12/18 22:29 Blood Culture - Preliminary Blood No Growth after 48 hours 12/14/18 16:12 Acid Fast Bacilli Culture - Preliminary Shoulder - Left 12/14/18 16:12 Acid Fast Bacilli Culture - Preliminary Shoulder - Left 12/14/18 16:12 Anaerobic Culture - Preliminary Shoulder - Left 12/14/18 16:12 Fungal Culture - Preliminary Shoulder - Left 12/14/18 16:12 Fungal Culture - Preliminary Shoulder - Left 12/14/18 16:12 Acid Fast Bacilli Culture - Preliminary Shoulder - Left 12/14/18 16:12 Anaerobic Culture - Preliminary Shoulder - Left 12/14/18 16:12 Anaerobic Culture - Preliminary Shoulder - Left 12/14/18 16:12 Fungal Culture - Preliminary Shoulder - Left 12/14/18 16:12 Tissue Culture - Preliminary Shoulder - Left 12/14/18 16:12 Tissue Culture - Preliminary Shoulder - Left Assessment and Plan Assessment: Septic arthritis of the left shoulder, history of IV drug use Polysubstance abuse Resolved: Hypokalemia Leukocytosis of 19.1-11.5. CRP 337.2. Shoulder x-ray shows soft tissue swel ling. MRI of the left shoulder confirms osteomyelitis with abscess formation. Lactic acid within normal limits. POD 1 of left shoulder I&D with DHARA drain placement. Blood cultures prelim negative at 48 hours. Urine culture preliminary negative. Plans: Continue vancomycin and Zosyn. Change Dilaudid 2 mg IV Q1H to Morphine 8 mg IV Q3H. Tylenol as needed for fever. Toradol as needed for pain. Follow orthopedic recommendations. Follow blood culture, urine culture, GC culture. Follow-up left shoulder abscess cultures. Potassium 3.3 yesterday replaced orally. Plans: Resolved today. Plans: Start methadone 20 mg by mouth twice a day. Xanax as needed for agitation. [Patient admitted for septic arthritis of the left shoulder with abscess formation. Patient is pending clinical improvement. High risk for AMA.]
[2018-12-15 14:06] LABS: N. gonorrhoeae,PCR Negative (Neg,Equiv); Neisseria Source Urine
[2018-12-15] MEDS: MORPHINE SULFATE 4 MG/ML SYRINGE IVP PRN ×3 (14:25→20:53)
--- NOTE | 2018-12-15 15:22 | P.CN ---
Psychiatric Consult - . Consult date: 12/15/18 Consult:: Chief complaint Psychiatry was consulted to evaluate the patient for possible schizophrenia. Patient was admitted to medical floor with septic arthritis. Reportedly patients father was diagnosed with Schizophrenia and last year. History of presenting illness Patient was seen today. Patient with no prior psychiatric treatment history became very upset that psychiatry was consulted on him. He stated there was a misscommunication. He satetd his father and he does not want to . He satetd he has no intentions of wanting to harm self or others. He refused to talk saying he does not need psychiatric treatment. He denies current auditory or visual hallucinations. He denies paranoid ideations. He denies feeling sad, worried or hopeless. He denies mood swings. He refuses to talk further and stated he wants leave the hospital and does not want to get locked up in psychiatric hospital. Thank you for the consult. Will sign off on this patient as patient does not have any mental health complaints. 12/15/18 15:17
[2018-12-16] MEDS: SODIUM CHLORIDE 0.9% 1,000 ML IV SCH ×4 (00:16→15:14)
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
[2018-12-16] MEDS: MORPHINE SULFATE 4 MG/ML SYRINGE IVP PRN ×4 (02:59→09:18)
[2018-12-16] MEDS: VANCOMYCIN 1,250 MG in SODIUM CHLORIDE 0.9% 250 ML IVPB SCH ×4 (03:02→21:04)
[2018-12-16] MEDS: HEPARIN SODIUM,PORCINE 5,000 UNIT/ML 1 ML VIAL SQ SCH ×2 (06:53→22:45)
[2018-12-16] MEDS: METHADONE 5 MG TAB PO SCH (08:34)
--- NOTE | 2018-12-16 09:50 | P.PN ---
Subjective Progress Note Date: 12/16/18 Principal diagnosis: Acromioclavicular joint sepsis left shoulder. This is a 28-year-old male who we have been following regarding septic arthritis to the AC joint of the left shoulder. He is status post incision and drainage of the left shoulder. The patient is refusing to be evaluated today. At first he states that he is trying to sleep. That he states that he is having too much pain to have his dressing changed. He has had approximately 25 mL out of his DHARA drain through the night nurse. He verbalizes no new complaints or concerns today. He is getting morphine 8 mg IV every 3 hours. Objective - Vital Signs Vital signs: Vital Signs Temp 98.1 F 12/16/18 07:50 Pulse 78 12/16/18 07:50 Resp 16 12/16/18 07:50 BP 128/76 12/16/18 07:50 Pulse Ox 96 12/16/18 07:50 Intake & Output 12/15/18 12/16/18 12/16/18 18:59 06:59 18:59 Intake Total 1440 250 Output Total 25 Balance 1440 225 Intake: Intake, IV Titration 250 Amount Vancomycin 1,250 mg In 250 Sodium Chloride 0.9% 250 ml @ 125 mls/hr IVPB Q6H [facility] Rx#:[id number] Oral 1440 Output: Drainage 25 Left Shoulder 25 Other: Voiding Method Toilet Toilet Toilet # Voids 2 - Exam This is a 28-year-old male in no acute distress. He is alert and oriented 3. Exam the left shoulder reveals that his dressing is clean, dry and intact. There is a drain still in place. As stated above patient is refusing to have dressing changed today and refusing evaluation. - Labs CBC & Chem 7: 12/14/18 07:04 12/14/18 07:04 Labs: Microbiology - Last 24 Hours (Table) 12/12/18 22:29 Blood Culture - Preliminary Blood No Growth after 72 hours 12/14/18 16:12 Gram Stain - Preliminary Shoulder - Left Tissue Culture - Preliminary Assessment and Plan (1) IVDU (intravenous drug user) Current Visit: Yes Status: Acute Code(s): F19.90 - OTHER PSYCHOACTIVE SUBSTANCE USE, UNSPECIFIED, UNCOMPLICATED SNOMED Code(s): 835219515 (2) Osteomyelitis Current Visit: Yes Status: Acute Code(s): M86.9 - OSTEOMYELITIS, UNSPECIFIED SNOMED Code(s): 47525569 (3) Pain in left acromioclavicular joint Current Visit: Yes Status: Acute Code(s): M25.512 - PAIN IN LEFT SHOULDER SNOMED Code(s): 803871405 (4) Septic arthritis Current Visit: Yes Status: Acute Code(s): M00.9 - PYOGENIC ARTHRITIS, UNSPECIFIED SNOMED Code(s): 768314032 Plan: The clinical findings have been discussed with the patient. Patient is refusing orthopedic evaluation and dressing change today.
[2018-12-16] MEDS ORDERED: MORPHINE SULFATE 4 MG/ML SYRINGE IVP PRN (10:55)
--- NOTE | 2018-12-16 10:55 | P.PN ---
Subjective Progress Note Date: 12/16/18 Principal diagnosis: Left shoulder pain Patient was seen and examined. No acute events overnight. Patient reports pain in his left shoulder. Otherwise appears comfortable. More somnolent today. Refused dressing changes by orthopedic surgery. Objective - Vital Signs Vital signs: Vital Signs Temp 98.1 F 12/16/18 07:50 Pulse 78 12/16/18 07:50 Resp 16 12/16/18 07:50 BP 128/76 12/16/18 07:50 Pulse Ox 96 12/16/18 07:50 Intake & Output 12/15/18 12/16/18 12/16/18 18:59 06:59 18:59 Intake Total 1440 250 Output Total 25 Balance 1440 225 Intake: Intake, IV Titration 250 Amount Vancomycin 1,250 mg In 250 Sodium Chloride 0.9% 250 ml @ 125 mls/hr IVPB Q6H [facility] Rx#:[id number] Oral 1440 Output: Drainage 25 Left Shoulder 25 Other: Voiding Method Toilet Toilet Toilet # Voids 2 - Exam General: [non toxic], [no distress], [appears at stated age] Derm: [warm], [dry] Head: [atraumatic], [normocephalic], [symmetric] Eyes: [EOMI], [no lid lag], [anicteric sclera] Mouth: [no lip lesion], [mucus membranes moist] Cardiovascular: [S1S2 reg], [no murmur], [positive posterior tibial pulse bilateral] Lungs: [CTA bilateral], [no rhonchi, no rales] , [no accessory muscle use] Abdominal: [soft], [ nontender to palpation], [no guarding], [no appreciable organomegaly] Ext: [no gross muscle atrophy], [no edema], [no contractures], [left shoulder dressings placed clean dry and intact, DHARA drain draining serosanguineous fluid] Neuro: [no focal neuro deficits] Psych: [Alert], [oriented], [appropriate affect] - Labs CBC & Chem 7: 12/14/18 07:04 12/14/18 07:04 Labs: Microbiology - Last 24 Hours (Table) 12/12/18 22:29 Blood Culture - Preliminary Blood No Growth after 72 hours 12/14/18 16:12 Gram Stain - Preliminary Shoulder - Left Tissue Culture - Preliminary Assessment and Plan Assessment: Septic arthritis of the left shoulder, history of IV drug use Polysubstance abuse Resolved: Hypokalemia Leukocytosis of 19.1-11.5. CRP 337.2. Shoulder x-ray shows soft tissue swelling. MRI of the left shoulder confirms osteomyelitis with abscess formation. Lactic acid within normal limits. POD 1 of left shoulder I&D with DHARA drain placement. Blood cultures prelim negative at 48 hours. Urine culture preliminary negative. Plans: Continue vancomycin. ID consulted, recommends DC Zosyn and start ceftazidime. Decrease morphine from 8 mg to 4 mg IV every 3 hours for increased somnolence. Tylenol as needed for fever. Toradol as needed for pain. Follow orthopedic recommendations. Follow blood culture, urine culture, GC culture. Follow-up left shoulder abscess cultures. Potassium 3.3 yesterday replaced orally. Plans: Resolved today. Plans: Start methadone 20 mg by mouth twice a day. Xanax as needed for agitation. [Patient admitted for septic arthritis of the left shoulder with abscess formation. Cultures are pending. High risk for AMA.]
--- NOTE | 2018-12-16 21:53 | PN ---
PROGRESS NOTE DATE OF SERVICE: 12/16/2018 REASON FOR FOLLOWUP: Left shoulder septic arthritis. INTERVAL HISTORY: The patient is currently afebrile. The patient's pain to the left shoulder area has slightly decreased in intensity. No chest pain, shortness of breath or cough. No nausea, vomiting. No abdominal pain and no diarrhea. PHYSICAL EXAMINATION: Blood pressure is 127/78 with a pulse of 75, temperature 98.2, he is 96% on room air. General description is a young male up in the bed in no distress. Respiratory system: Unlabored breathing, clear to auscultation anteriorly. Heart S1, S2. Regular rate and rhythm. Abdomen soft, no tenderness. Left shoulder is currently dressed up with blood- stained drainage and the DHARA drain. LABS: No new labs were obtained today. Cultures currently pending. DIAGNOSTIC IMPRESSION AND PLAN: Patient with left shoulder septic arthritis, status post debridement. Cultures are currently pending. Plan is to keep the patient on Fortaz and vancomycin while waiting for the culture to finalize. Family at the bedside. Questions answered. MMODL / IJN: [id number] /
[2018-12-17] MEDS: METHADONE 5 MG TAB PO SCH ×2 (01:59→08:12)
[2018-12-17 02:31] VITALS: RESP 16
[2018-12-17] MEDS: VANCOMYCIN 1,250 MG in SODIUM CHLORIDE 0.9% 250 ML IVPB SCH ×2 (03:21→10:00)
[2018-12-17] MEDS: SODIUM CHLORIDE 0.9% 1,000 ML IV SCH (08:13)
[2018-12-17] MEDS: HEPARIN SODIUM,PORCINE 5,000 UNIT/ML 1 ML VIAL SQ SCH ×2 (08:13→08:16)
[2018-12-17 08:20] VITALS: BP 128/81; PULSE 82; TEMP 99.2
[2018-12-17] MEDS ORDERED: VANCOMYCIN TROUGH DUE 1 EACH MISC MISCELLANE ONE (09:00)
--- NOTE | 2018-12-17 10:43 | P.PN ---
Subjective Progress Note Date: 12/17/18 The patient states that the shoulder is not really bothering him and he has not needed any pain medicine. He admits that he hasn't been moving around very much. He denies any specific issues or concerns. Objective - Vital Signs Vital signs: Vital Signs Temp 99.2 F 12/17/18 08:19 Pulse 82 12/17/18 08:19 Resp 16 12/17/18 08:19 BP 128/81 12/17/18 08:19 Pulse Ox 97 12/17/18 08:19 Intake & Output 12/16/18 12/17/18 12/17/18 18:59 06:59 18:59 Intake Total 600 Output Total 20 25 Balance -20 575 Intake: Intake, IV Titration 600 Amount Vancomycin 1,250 mg In 500 Sodium Chloride 0.9% 250 ml @ 125 mls/hr IVPB Q6H [facility] Rx#:[id number] cefTAZidime 2 gm In 100 Sodium Chloride 0.9% 100 ml @ 100 mls/hr IVPB Q8HR [facility] Rx#:[id number] Output: Drainage 20 25 Left Shoulder 20 25 Other: Voiding Method Toilet Toilet Toilet # Voids 3 1 - Exam The patient's affect is very subdued. Minimal verbal responses. Avoids eye contact. Focused examination of the left shoulder: Scant, mostly serous drainage in the drain. This was removed without difficulty. No purulence or persistent drainage after removal. Incision is well approximated with sutures in place. No erythema or fluctuance. The surrounding skin shows irritation from the tape and/or surgical prep. No blisters or ulcerations. When asked to move the shoulder, performed minimal circumduction (less than 20 of abduction) and then walked into the bathroom as I was talking to him. - Labs CBC & Chem 7: 12/14/18 07:04 12/14/18 07:04 Labs: Microbiology - Last 24 Hours (Table) 12/12/18 22:29 Blood Culture - Preliminary Blood No Growth after 96 hours 12/14/18 16:12 Gram Stain - Final Shoulder - Left Tissue Culture - Final Staphylococcus aureus 12/14/18 16:12 Gram Stain - Final Shoulder - Left Tissue Culture - Final Staphylococcus aureus 12/14/18 16:12 Gram Stain - Final Shoulder - Left Tissue Culture - Final Staphylococcus aureus Assessment and Plan Assessment: 1. Postoperative day #3 status post I&D of left acromioclavicular (AC) joint septic arthritis with distal clavicle excision 2. Osteomyelitis of the acromion/distal clavicle 3. Intraop cultures positive for [place]-sensitive MSSA 4. Polysubstance abuse including nicotine addiction and recent IVDA with heroin Plan: The shoulder is doing well. I encouraged him to perform some gentle mobilization but avoid lifting, reaching, pushing or pulling. The dressing may be changed as needed. His pain appears well controlled. We will stop the IV narcotics to ensure that his oral regimen is sufficient for discharge. Okay to DC from an orthopedic standpoint once the antibiotic plan is in place. Follow-up outpatient in 1 week for wound check and suture removal.
[2018-12-17 10:59] LABS: African American GFR (CKD) >90 (>60 ml/min/1.73 sqM)
[2018-12-17] MEDS ORDERED: ceFAZolin 3 GM in SODIUM CHLORIDE 0.9% 100 ML IVPB ONE (12:06)
--- NOTE | 2018-12-17 14:08 | P.DS ---
Providers Date of admission: 12/13/18 00:43 Expected date of discharge: 12/17/18 Attending physician: Bienvenido Del Rosario MD Consults: 12/13/18 00:45 Consult Physician Urgent Consulting Provider: Mp Barnard Consult Reason/Comments: septic shoulder Do you want consulting provider notified?: Yes, Notify in am 12/14/18 18:56 Consult Physician Routine Consulting Provider: Deo Mcclain Consult Reason/Comments: possible schizophrenia Do you want consulting provider notified?: Yes 12/15/18 14:40 Consult Physician Routine Consulting Provider: Nadira Parra Consult Reason/Comments: AC joint septic arthritis/osteomyelitis Do you want consulting provider notified?: Yes Primary care physician: Stated None Hospital Course: 28-year-old male with no significant past medical history besides IV drug abuse presented to the ED for 3-4 days of worsening left shoulder pain. He had also noticed pain that was worsened with exertion and swelling and warmth along with redness in the left shoulder. X-ray of the left shoulder showed a avulsion fracture with possible osteomyelitis. CRP was elevated. Patient was hemodynamically stable. CBC showed leukocytosis of 19.1. CMP showed potassium of 3.3 and was otherwise stable. Orthopedic surgery evaluated the patient and recommended MRI of the shoulder. MRI of the shoulder confirmed septic arthritis of the before meals joint with contiguous osteomyelitis, irregular abscess extending from the before meals joint involving the trapezius muscle and deltoid. Patient was initially started on IV vancomycin and Zosyn and admitted for further evaluation. Infectious disease was consulted and recommended discontinuing Zosyn and starting ceftazidime. Patient underwent I&D and debridement on 12/14/2018. DHARA drain was placed which drained serosanguineous fluid. Cultures were obtained which came back positive for MSSA pansensitive. Patient was seen and examined. No acute events overnight. Patient reports left shoulder pain, improved from initial admission. He is complaining about the fact that he can't have any guests in his room. He denies any chest pain, shortness breath or palpitations. No nausea or vomiting. No fever or chills. DHARA drain pulled out today and cleared by orthopedic surgery. General: [non toxic], [no distress], [appears at stated age] Derm: [warm], [dry] Head: [atraumatic], [normocephalic], [symmetric] Eyes: [EOMI], [no lid lag], [anicteric sclera] Mouth: [no lip lesion], [mucus membranes moist] Cardiovascular: [S1S2 reg], [no murmur] Lungs: [CTA bilateral], [no rhonchi, no rales] , [no accessory muscle use] Abdominal: [soft], [ nontender to palpation], [no guarding], [no appreciable organomegaly] Ext: [no gross muscle atrophy], [no edema], [no contractures], [left shoulder dressings placed clean dry and intact] Neuro: [no focal neuro deficits] Psych: [Alert], [oriented], [appropriate affect] Septic arthritis of the left shoulder, history of IV drug use Polysubstance abuse Resolved: Hypokalemia Leukocytosis of 19.1-11.5. CRP 337.2. Shoulder x-ray shows soft tissue swelling. MRI of the left shoulder confirms osteomyelitis with abscess formation. Lactic acid within normal limits. POD 3 of left shoulder I&D with DHARA drain placement, now discontinued. Blood cultures prelim negative at 96 hours. Urine culture preliminary negative. Wound culture MSSA pansensitive. Plans: Continue methadone 20 mg by mouth twice a day. Xanax as needed for agitation. I had a long conversation with this patient regarding the need for IV ant ibiotics for long-term treatment. Patient would have to come here daily to have IV line inserted peripherally followed by daily antibiotics. Patient states that he lives 3 hours with and would be unable to get here on a daily basis. Patient also states that he refuses to get IV lines inserted peripherally on a daily basis due to his fear of needles. I explained to the patient that this would be his best method of treatment but patient continued to refuse adamantly. I discussed the case with infectious disease, and plan was to discharge the patient home on Keflex 500 mg by mouth every 6 hours for the next 3 weeks. Patient understands that this is not the ideal treatment and states that he will think about following up with orthopedic surgery in the outpatient setting. This complex discharge took greater than 45 minutes to complete. Pertinent Studies: Shoulder x-ray, MRI shoulder Procedures: I&D with DHARA drain placement in the left shoulder for left shoulder abscess Patient Condition at Discharge: Stable Plan - Discharge Summary Discharge Rx Participant: Yes New Discharge Prescriptions: New Cephalexin [Keflex] 500 mg PO Q6HR #84 cap Continue Ibuprofen [Motrin Ib] 400 mg PO Q6H PRN #30 tab PRN Reason: Pain Discharge Medication List Cephalexin [Keflex] 500 mg PO Q6HR #84 cap 12/17/18 [Rx] Ibuprofen [Motrin Ib] 400 mg PO Q6H PRN #30 tab 12/17/18 [Rx] Follow up Appointment(s)/Referral(s): Mp Barnard, [Medical Doctor] - 1 Week None,Stated [Primary Care Provider] - 1-2 days Activity/Diet/Wound Care/Special Instructions: Orthopedic Discharge Instructions Perform gentle movement of the shoulder but avoid lifting, reaching, pushing or pulling. Do not reach overhead or across the body. Okay to use the left hand for light daily activities. Dressings may be removed and left off once no further drainage from wound. No salves or ointments. Ok to shower and get incision wet. No soaking in a tub, pool or [place]. Follow-up with Dr. Barnard in the office in 1 week - call for appointment. [phone] Follow-up with your PCP within 1-2 days of discharge. Take all medications as advised. Come back to the ED or call 911 for worsening fevers greater than 100.4F. Discharge Disposition: HOME SELF-CARE
[2018-12-17] MEDS ORDERED: VANCOMYCIN 1,000 MG in SODIUM CHLORIDE 0.9% 250 ML IVPB SCH (16:00)
--- NOTE | 2018-12-17 16:45 | PN ---
PROGRESS NOTE DATE OF SERVICE: 12/17/2018 REASON FOR FOLLOWUP: Left shoulder septic arthritis MSSA. INTERVAL HISTORY: The patient is currently afebrile. The patient has been breathing comfortably. Overall pain left shoulder area has improved. DHARA drain has been discontinued. No nausea, no vomiting, no abdominal pain or diarrhea. PHYSICAL EXAMINATION: Blood pressure 122/81 with a pulse of 82, temperature 98.2. He is 97% on room air. General description is a young male up in the chair in no distress. RESPIRATORY SYSTEM: Unlabored breathing. Clear to auscultation anteriorly. HEART: S1, S2. Regular rate and rhythm. ABDOMEN: Soft. No tenderness. Left shoulder currently with minimal swelling. No redness. No drainage. LABS: No new labs have been obtained today. Culture has been positive for MSSA. DIAGNOSTIC IMPRESSION AND PLAN: Patient with left shoulder septic arthritis, status post washout. Culture with MSSA. The patient has been advised IV antibiotic therapy; however, the patient is refusing a PICC line and in this patient who does have a history of active IV drug use. Other option will be daily peripheral IV and IV Rocephin. If not, also an option would be Keflex 500 mg p.o. q.6 hours for 3-4 weeks and close outpatient followup. This has been discussed in detail with the admitting physician, who is working on discharge. LARRY / TOMN: [id number] /
[2018-12-18] MEDS ORDERED: VANCOMYCIN TROUGH DUE 1 EACH MISC MISCELLANE ONE (15:00)
== END 2018-12-17 15:07 | disposition home or self-care (01) | DRG 516 ==
LOC: EC 21:32 → 4SSUR 12-13 00:43
PROVIDERS: ADMIT Internal Medicine; ATTEND Internal Medicine
PROC: 0PBB0ZZ Excision of Left Clavicle, Open Approach (ICD-10-PCS; principal; 2018-12-14 13:00)
DX: M00.012 Staphylococcal arthritis, left shoulder (principal); M86.9 Osteomyelitis, unspecified; L02.414 Cutaneous abscess of left upper limb; L03.114 Cellulitis of left upper limb; E87.6 Hypokalemia; F11.10 Opioid abuse, uncomplicated; F17.200 Nicotine dependence, unspecified, uncomplicated; Z71.6 Tobacco abuse counseling; Z71.51 Drug abuse counseling and surveillance of drug abuser; V18.0XXA Pedal cycle driver injured in noncollision transport accident in nontraffic accident, initial encounter; Y93.55 Activity, bike riding; Z82.49 Family history of ischemic heart disease and other diseases of the circulatory system
CPT/HCPCS: 36415; 71046; 80048; 80053; 80202; 81003; 82565; 83605; 85025; 85610; 85730; 86140; 87040; 87070; 87075; 87077; 87086; 87102; 87116; 87186; 87205; 87206; 87591; 93005; 96361; 96365; 96375; 99285